=== PATIENT | female | born 1990 | race Hispanic/Latino ===

== ENCOUNTER 2017-05-15 22:06 | Emergency (ER) | payer OTHER ==
[~2017-05-15] VITALS: Ht 162.6 cm; Wt 96.2 kg
[2017-05-15] MEDS ORDERED: HYDROCODONE/APAP 5MG-325MG TAB PO ONE (23:15)
[2017-05-16 00:25] VITALS: BP 108/76
== END 2017-05-16 00:25 | disposition home or self-care (01) ==
LOC: FSED 22:06
DX: G89.11 Acute pain due to trauma (principal); M25.511 Pain in right shoulder; Y93.83 Activity, rough housing and horseplay; F41.9 Anxiety disorder, unspecified; F17.210 Nicotine dependence, cigarettes, uncomplicated

== ENCOUNTER 2018-09-08 18:25 | Emergency (ER) | payer SELFPAY ==
[~2018-09-08] VITALS: Ht 162.6 cm; Wt 96.2 kg
[2018-09-08] MEDS ORDERED: KETOROLAC TROMETHAMINE 60 MG/2 ML VIAL IM ONE (19:00)
[2018-09-08] MEDS ORDERED: KETOROLAC TROMETHAMINE 60 MG/2 ML VIAL ONE (19:02)
--- NOTE | 2018-09-08 19:52 | Diagnostic Imaging Report ---
EXAMINATION: Right shoulder series. CLINICAL HISTORY: Right shoulder pain status post fall. COMPARISON: None. . Discussion: The osseous structures are intact without evidence of acute, displaced fracture or dislocation. No osteolytic or osteoblastic lesions. There is no evidence of a.c. separation. The glenohumeral joint is within normal limits. The soft tissues are normal. IMPRESSION: 1. Unremarkable right shoulder films. Signed by: Dr. Camilo Conteh M.D. on 09/08/2018 7:48 PM
--- NOTE | 2018-09-08 19:53 | Diagnostic Imaging Report ---
CT C-SPINE W/O - HOPD HISTORY: Fall, neck pain, right shoulder pain COMPARISON: None. TECHNIQUE: CT of the cervical spine without contrast. Sagittal and coronal reformations were created. One or more of the following dose reduction techniques were used: Automated exposure control, adjustment of the mA and/or kV according to patient size, and/or utilization of iterative reconstruction technique. FINDINGS: Cervical lordosis is straightened. There is no scoliosis or subluxation. No fractures, compression deformity, or destructive osseous lesions are seen. The craniocervical junction is intact. No gross spinal canal masses are seen. The paravertebral and paraspinal soft tissues are unremarkable. The disc spaces are preserved. IMPRESSION: No acute osseous abnormalities. Signed by: Dr. Ta Lord M.D. on 09/08/2018 7:50 PM
== END 2018-09-08 20:11 | disposition home or self-care (01) ==
LOC: FSED 18:25
DX: S16.1XXA Strain of muscle, fascia and tendon at neck level, initial encounter (principal); M54.12 Radiculopathy, cervical region
CPT/HCPCS: 72125; 73030; 99283; J1885